=== PATIENT | male | born 1960 | race Caucasian/White ===

== ENCOUNTER 2017-01-17 15:54 | Emergency (ER) | payer BC ==
--- NOTE | ~2017-01-17 | CR63 ---
[facility]. [facility] A Service of [facility] & [facility] RADIOLOGY TEXT RESULTS PATIENT: SAM WEAVER LOCATION: SED : 62 UNIT #: [id number] AGE: [address]: AMA HENDERSON SEX: M ORDER DR: [id number] [place] [id number] MR#: [id number] Acc #: [id number] NAME: SAM WEAVER. : 1960 SEX: M STUDY DATE/TIME: 01/17/2017 16:29 UNIT: SED ROOM: STUDY DESCRIPTION: CR Chest 2 View Attending Physician: Reji Patel Ordering Physician: Reji Patel Primary Care Physician: Liam Del Rio M.D. MEDICAL IMAGING REPORT This report is preliminary unless electronic signature is present. EXAM 2-view chest 01/17/2017. HISTORY 56-year-old male with chest pain and left arm pain beginning today. COMPARISON Chest 09/11/2011. FINDINGS 2 views of the chest demonstrate clear lungs. No pleural effusion or pneumothorax. Calcified granuloma left upper lung field. Heart size and mediastinum normal. Pulmonary vasculature normal. IMPRESSION No acute cardiopulmonary findings. Dictated by... Gonsalo Hamm M.D. THIS IS AN ELECTRONICALLY VERIFIED REPORT Gonsalo Hamm M.D. at 01/18/2017 9:10 AM BERTIN/phan TD: 01/17/2017 19:24 JOB #: [id number] MEDICAL IMAGING REPORT Page 1 of 1
--- NOTE | ~2017-01-17 | EKG ---
PATIENT: SAM WEAVER UNIT #: [id number] Ventricular Rate: 66 BPM Atrial Rate: 66 BPM P-R Interval: 140 ms QRS Duration: 92 ms Q-T Interval: 420 ms QTC Calculation(Bezet): 440 ms P [place]: 28 degrees Calculated R [place]: 19 degrees Calculated T [place]: 46 degrees Diagnosis Line: Normal sinus rhythm Diagnosis Line: Normal ECG Diagnosis Line: No previous ECGs available Diagnosis Line: Confirmed by DEBORA DUFFY MD ([id number]) on 01/21/2017 Diagnosis Line: 8:08:25 AM INTERPRETING MD: CLIVE REED
--- NOTE | ~2017-01-17 | CT71 ---
[facility] A Service of [facility] / [facility] RADIOLOGY TEXT RESULTS PATIENT: SAM WEAVER LOCATION: SED : 62 UNIT #: [id number] AGE: [address]: AMA HENDERSON SEX: M ORDER DR: [id number] [place] [id number] E MR#: [id number] Acc #: [id number] NAME: SAM WEAVER. : 1960 SEX: M STUDY DATE/TIME: 01/17/2017 16:38 UNIT: SED ROOM: STUDY DESCRIPTION: CT Head Wo Contrast Ordering Physician: [facility] Primary Care Physician: Liam Del Rio M.D. MEDICAL IMAGING REPORT This report is preliminary unless electronic signature is present. EXAM Head CT, no contrast HISTORY One day history of severe headache with left arm pain and hypertension. TECHNIQUE Routine unenhanced head CT. This CT exam was performed with one or more of the following radiation dose reduction techniques: automatic exposure control, adjustment of mA and/or kV according to patient size, and iterative reconstruction. COMPARISON STUDIES None. FINDINGS Ventricular size and configuration are normal. There is no evidence of acute infarct or hemorrhage. There are no extraaxial fluid collections. No mass lesion or mass effect is seen. There are no skull fractures. IMPRESSION Normal noncontrast head CT. Dictated by... Luis Parker M.D. THIS IS AN ELECTRONICALLY VERIFIED REPORT Luis Parker M.D. at 01/18/2017 2:15 PM TEV/pcl STS. [facility] A Service of [facility] & [facility] RADIOLOGY TEXT RESULTS PATIENT: SAM WEAVER LOCATION: SED : 62 UNIT #: [id number] AGE: [address]: AMA HNEDERSON SEX: M ORDER DR: TD: 01/17/2017 19:19 JOB #: [id number] MEDICAL IMAGING REPORT Page 1 of 1
[~2017-01-17 15:54] MED LIST: FLEXERIL10 MG PO; GLUCOPHAGE500 M1 PO; HCTZ PO; LISINOPRIL PO; LORTAB 10/500 T1 TAB PO; NEURONTIN600 MG PO; PERCOCET 10/3251 TAB PO; PRILOSEC PO; TEMAZEPAM PO; VOLTAREN75 MG PO
[2017-01-17 16:39] LABS: URINE SOURCE CLEAN CATCH
[2017-01-17 16:41] LABS: URINE APPEARANCE CLEAR; URINE BILIRUBIN NEG (NEG); URINE BLOOD NEG (NEG); URINE COLOR YELLOW; URINE GLUCOSE 100 MG/DL (NORM); URINE KETONE NEG (NEG); URINE LEUKOCYTE ESTERASE NEG (NEG); URINE NITRATE NEG (NEG); URINE PH 6.5 (5-8); URINE PROTEIN NEG (NEG); URINE SPECIFIC GRAVITY 1.015 (1.003-1.035); URINE UROBILINOGEN 0.2 MG/DL (NORM)
[2017-01-17 16:44] LABS: MICRO INDICATED? NO
[2017-01-17 16:49] LABS: BASOPHIL% 0.5 % (0-2.5); EOSINOPHIL# 0.1 X10e3 (0-0.7); EOSINOPHIL% 1.4 % (0.0-7.0); HEMATOCRIT 42.7 % (38.0-50.0); HEMOGLOBIN 14.8 gm/dL (13.0-16.0); LYMPHOCYTE# 1.8 X10e3 (1.0-3.5); MEAN CELL VOLUME 89.1 FL (83-96); MEAN CORPUSCULAR HEMOGLOBIN 30.9 PG (28-34); MEAN CORPUSCULAR HGB CONC 34.7 g/dL (30-36); MEAN PLATELET VOLUME 7.3 FL (6.5-11.5); MONOCYTE# 0.2 X10e3 (0-1.0); NEUTROPHIL% 65.1 % (40-75); PLATELET COUNT 229 X10e3 (140-420); RED BLOOD COUNT 4.79 X10e (3.90-5.60); RED CELL DISTRIBUTION WIDTH 12.6 % (11.0-15.5); WHITE BLOOD COUNT 6.1 X10e3 (4.0-10.5)
[2017-01-17 16:50] LABS: POC - CKMB <1.0 ng/mL (0.0-7.9); POC - TROPONIN <0.05 ng/mL (<=0.05)
[2017-01-17 16:54] LABS: DIFF IND NO
[2017-01-17 17:03] LABS: ALBUMIN SERUM 4.1 g/dL (3.5-5.0); BILIRUBIN, DIRECT 0.1 mg/dL (0.0-0.2); BILIRUBIN,INDIRECT 0.3 mg/dL (0.0-0.9); BILIRUBIN,TOTAL 0.4 mg/dL (0.2-2.0); BUN/CREATININE RATIO 18.57; CALCIUM SERUM 9.2 mg/dL (8.4-10.2); CREATININE SERUM 0.7 mg/dL (0.6-1.4); GLOM FILT RATE Estimated 106.3 mL/min (>60); PROTEIN TOTAL SERUM 7.2 g/dL (6.0-8.3)
== END 2017-01-17 17:29 | disposition home or self-care (01) ==
LOC: SED 15:54
PROVIDERS: Physician Assistant
DX: I10 Essential (primary) hypertension (principal); R20.2 Paresthesia of skin; E11.65 Type 2 diabetes mellitus with hyperglycemia; E78.5 Hyperlipidemia, unspecified; F17.210 Nicotine dependence, cigarettes, uncomplicated; Z79.899 Other long term (current) drug therapy
CPT/HCPCS: 36415; 70450; 71020; 80048; 80076; 81003; 82553; 84484; 85025; 93005; 99284